=== PATIENT | male | born 1985 | race Two or more races ===

== ENCOUNTER 2023-07-26 01:00 | Emergency (ER) | payer SELFPAY ==
[~2023-07-26] VITALS: Ht 167.6 cm; Wt 68.0 kg
[2023-07-26] MEDS ORDERED: ACETAMINOPHEN 500 MG TAB PO ONE (02:15)
[2023-07-26] MEDS ORDERED: LIDOCAINE 1% HCL (LOCAL ANESTH.) INJ 20ML MDV ID ONE (02:15)
[2023-07-26] MEDS ORDERED: cefTRIAXone SOD 1,000 MG VL IM ONE (02:15)
[2023-07-26] MEDS ORDERED: ONDANSETRON ODT 4 MG TAB PO ONE (02:30)
[2023-07-26] MEDS ORDERED: IBUP1TAB5 PO (02:42)
[2023-07-26] MEDS ORDERED: AUG875T PO (02:42)
[2023-07-26] MEDS ORDERED: ZOFR4T PO (02:42)
[2023-07-26 02:44] VITALS: BP 130/79; PULSE 96; RESP 16; TEMP 98.1; O2SAT 99
== END 2023-07-26 04:09 | disposition home or self-care (01) ==
LOC: ER 01:00
DX: S01.81XD Laceration without foreign body of other part of head, subsequent encounter (principal); G43.909 Migraine, unspecified, not intractable, without status migrainosus; H66.92 Otitis media, unspecified, left ear; K08.89 Other specified disorders of teeth and supporting structures; Z48.00 Encounter for change or removal of nonsurgical wound dressing; Z79.899 Other long term (current) drug therapy; X58.XXXD Exposure to other specified factors, subsequent encounter
CPT/HCPCS: 70450; 70486; 96372; 99285; J0696; J2001; Q0162